=== PATIENT | male | born 1960 | race Caucasian/White ===

== ENCOUNTER 2021-01-01 17:01 | Outpatient (CLI) | payer OTHER ==
[2021-01-02 15:54] LABS: SARS-CoV-2 PCR by NAA Not Detected (NotDetected)
== END 2021-01-01 17:02 | disposition home or self-care (01) ==
LOC: CSHLAB 17:01
PROVIDERS: ATTEND Internal Medicine Gastroenterology
DX: Z20.822 Contact with and (suspected) exposure to COVID-19 (principal)
CPT/HCPCS: 87635; U0003; U0005

== ENCOUNTER 2021-01-06 08:58 | Day surgery (SDC) | payer OTHER ==
[2021-01-05 14:52] VITALS: BMI 23.5
[2021-01-06] MEDS ORDERED: PROPOFOL 20 ML ONE ×2 (10:56→11:15)
[2021-01-06] MEDS ORDERED: Lidocaine 1% PF 5 ML VIAL ONE (11:03)
== END 2021-01-06 12:45 | disposition home or self-care (01) ==
LOC: CSHSDC 08:58
PROVIDERS: ATTEND Internal Medicine Gastroenterology
PROC: 0D758ZZ Dilation of Esophagus, Via Natural or Artificial Opening Endoscopic (ICD-10-PCS; principal; 2021-01-06)
DX: K21.9 Gastro-esophageal reflux disease without esophagitis (principal); K22.10 Ulcer of esophagus without bleeding; K44.9 Diaphragmatic hernia without obstruction or gangrene
CPT/HCPCS: 88305; 88312; J2704